=== PATIENT | female | born 1965 | race Caucasian/White ===

== ENCOUNTER 2018-10-20 07:23 | Day surgery (SDC) | payer OTHER ==
[2018-10-20] VITALS (10 sets, daily range): BP systolic 125–136; BP diastolic 79–95
[~2018-10-20] VITALS: Ht 157.5 cm; Wt 61.2 kg
[2018-10-20] MEDS ORDERED: HYDROCHLOROTH12.5 M2 ORAL (08:09)
[2018-10-20] MEDS ORDERED: LISINOPRIL20 MG ORAL (08:09)
[2018-10-20] MEDS ORDERED: Lidocaine 1% MPF 10mg/ml 5ml ONE (08:45)
[2018-10-20] MEDS ORDERED: Midazolam 2mg/2ml Inj ONE (08:45)
[2018-10-20] MEDS ORDERED: Propofol 200mg/20ml IV ONE (08:45)
[2018-10-20] MEDS ORDERED: LR 1000ml ONE (08:45)
--- NOTE | 2018-10-20 08:49 | Short Stay Surgery H&P ---
History of Present Illness History of Present Illness Chief Complaint abdominal pains/GERDS HPI Ofe Morillo is a 53 year old female who was admitted on for GERDS/abadominal pains. Patient History Allergies: Uncoded Allergies: STEROIDS (Allergy, Unknown, Shortness of Breath, 10/20/18) Medication History Scheduled Hydrochlorothiazide* (Hydrochlorothiazide*), 12.5 MG ORAL DAILY, (Reported) Lisinopril (Lisinopril*), 20 MG ORAL DAILY, (Reported) Review of Systems Cardiovascular: Reports: no symptoms, hypertension Skeletal: Reports: trauma Gastrointestinal: Reports: gastro esophageal reflux disease Genitourinary: Reports: no symptoms Neurologic: Reports: no symptoms Hematologic: Reports: no symptoms Physical Exam Vital Signs Last Vital Signs Date Time Temp Pulse Resp B/P (MAP) Pulse Ox O2 Delivery O2 Flow Rate FiO2 10/20/18 08:11 98.1 80 18 135/79 98 Room Air Skin: normal HENT: normal Heart: normal Lungs: normal Abdomen: abnormal Extremities: normal Genitourinary: normal Plan Plan of Care Upper GI endoscopy and biopsy Preop Interventions None Summary of Findings See the reports Attestation Are the patient's medical conditions optimized for surgery? Attestation Response: yes Zion Mcdonnell MD Oct 20, 2018 08:49
--- NOTE | 2018-10-20 08:50 | Pre-Procedure Note/Attestation ---
Pre-Procedure Note/Attestation Complete Prior to Procedure Planned Procedure: left Procedure Narrative: Examination of the upper GI tract via endoscopy with taking biopsy Indications for Procedure Pre-Operative Diagnosis: R/O Peptic Ulcer/gastritis Attestation I attest that I discussed the nature of the procedure; its benefits; risks and complications; and alternatives (and the risks and benefits of such alternatives ), prior to the procedure, with the patient (or the patient's legal advertising sales representative). I attest that, if there was a reasonable possibility of needing a blood transfusion, the patient (or the patient's legal advertising sales representative) was given the [facility] standardized written summary, pursuant to the Eben Junior Blood Safety Act ([place] Health and Safety Code # 1645, as amended). I attest that I re-evaluated the patient just prior to the surgery and that there has been no change in the patient's H&P, except as documented below: Zion Mcdonnell MD Oct 20, 2018 08:50
--- NOTE | 2018-10-20 08:56 | Anethesia Preoperative Eval ---
Anesthesia Pre-op PMH/ROS General Date of Evaluation: Oct 20, 2018 Time of Evaluation: 08:52 Anesthesiologist: Shabana ASA Score: ASA 1 Mallampati Score Class I : Soft palate, uvula, fauces, pillars visible Class II: Soft palate, uvula, fauces visible Class III: Soft palate, base of uvula visible Class IV: Only hard plate visible Mallampati Classification: Class I Surgeon: Kecia Diagnosis: GERD Surgical Procedure: EGD Anesthesia History: none Family History: no anesthesia problems Allergies: Uncoded Allergies: STEROIDS (Allergy, Unknown, Shortness of Breath, 10/20/18) Medications: see eMAR Patient NPO?: Yes NPO Date: Oct 20, 2018 NPO Time: 20:00 Past Medical History Cardiovascular: Reports: HTN Pulmonary: Denies: asthma, COPD, JUAN MANUEL, other Gastrointestinal/Genitourinary: Reports: GERD, other - hx of ovarian CA - sx Neurologic/Psychiatric: Reports: depression/anxiety Endocrine: Denies: DM, hypothyroidism, steroids, other HEENT: Denies: cataract (L), cataract (R), glaucoma, [place] (L), [place] (R), other Hematology/Immune: Denies: anemia, DVT, bleeding disorder, other Musculoskeletal/Integumentary: Reports: OA - on fingers mild PSxH Narrative: , TAHBSO 2010 Anesthesia Pre-op Phys. Exam Physician Exam Last Vital Signs Date Time Temp Pulse Resp B/P (MAP) Pulse Ox O2 Delivery O2 Flow Rate FiO2 10/20/18 08:11 98.1 80 18 135/79 98 Room Air Constitutional: NAD Neurologic: CN 2-12 intact Cardiovascular: RRR Respiratory: CTA Gastrointestinal: S/NT/ND Airway Exam Mallampati Score: Class I MO: full ROM: full Teeth: missing - left upper back Dentures: no upper, no lower Anesthesia Pre-op A/P Risk Assessment & Plan Assessment: A&Ox4 Plan: MAC Status Change Before Surgery: No Pre-Antibiotics Given Within 1 Hr of Incision: Meeta Plunkett CRNA Oct 20, 2018 08:56
--- NOTE | 2018-10-20 09:01 | Immediate Post-Op Evaluation ---
Immediate Post-Op Evalulation Immediate Post-Op Evalulation Procedure: EGD Date of Evaluation: Oct 20, 2018 Time of Evaluation: 09:11 IV Fluids: LR 400ml Blood Products: 0 Estimated Blood Loss: 0 Urinary Output: 0 Blood Pressure Systolic: 127 Blood Pressure Diastolic: 89 Pulse Rate: 84 Respiratory Rate: 18 O2 Sat by Pulse Oximetry: 99 Temperature (Fahrenheit): 97 Pain Score (1-10): 0 Nausea: No Vomiting: No Complications none Patient Status: awake, reacts, patent Hydration Status: adequate Given Within 1 Hr of Incision: No - none per surgeon Meeta Donald CRNA Oct 20, 2018 09:01
--- NOTE | 2018-10-20 09:01 | 48 Hour Post Anesthesia Eval ---
Post Anesthesia Evaluation Procedure: EGD Date of Evaluation: Oct 20, 2018 Time of Evaluation: 10:14 Blood Pressure Systolic: 133 0: 88 Pulse Rate: 69 Respiratory Rate: 22 Temperature (Fahrenheit): 97 O2 Sat by Pulse Oximetry: 97 Airway: patent Nausea: No Vomiting: No Pain Intensity: 0 Hydration Status: adequate Mental Status/LOC: patient returned to baseline Follow-up care needed: patient intructions given Meeta Donald CRNA Oct 20, 2018 09:01
--- NOTE | 2018-10-20 09:04 | Endoscopy Procedure Note ---
Endoscopy Procedure Note General Indication for Procedure: Abdominal pains/GERDs Procedures Performed: EGD - Mild gastritis , otherwise completely normal upper GI. endoscopy, biopsy was obtained from the gastric body. Specimen: yes Pt Tolerated Procedure Well: Yes Estimated Blood Loss: none Anesthesia Anesthesiologist: Ms. Meeta Donald CRNA Anesthesia: moderate sedation Medications Medication Given: see anesthesia record Inserted Devices Implant(s) used?: No Quality Quality of Bowel Preparation: Excellent Was there any complications?: No GI Core Measures 50 yrs or older w/o bx or poly: Not Applicable 10yrs. F/U not recommended: Not Applicable If not recommended, why?: Med reason:<3 yrs.: System Reason:<3 yrs.: Zion Mcdonnell MD Oct 20, 2018 09:04
--- NOTE | 2018-10-20 09:05 | Discharge Instructions ---
Discharge Instructions Discharge Instructions Follow up with: Make appointment to see the doctor after 2 weeks in the office For Congestive Heart Failure Reminder Report to your physician any weight gain of 5 pounds or more in one week. Zion Mcdonnell MD Oct 20, 2018 09:05
--- NOTE | 2018-10-20 17:00 | Pre-op HX & Phy Repo 2 SIG ---
DATE OF ADMISSION: 10/20/2018 HISTORY OF PRESENT ILLNESS: This examination was done for clearance of the patient before undergoing the procedure for upper GI endoscopy, which had been authorized by the insurer for compensation for this examination. The patient is a 53-year-old female who is being seen prior to undergoing the procedure of upper GI endoscopy for which she has been scheduled for evaluation of her GI symptoms that she has been complaining. Actually, the applicant had been seen by Dr. Dutch Estrella couple of years ago. We recommended for this applicant to undergo the procedures of upper and lower GI endoscopy for the symptoms that she presented herself. She reported to me at this time that she had received a colonoscopic examination approximately 6 months ago by primary caregiver, which has been reported to be normal. At this time, the applicant reports to me that she does have history of experiencing heartburn and pain over upper part of the abdomen, which was consistent with the diagnosis of gastroesophageal acid reflux and as such she was examined by Dr. Estrella in the past. However, she denies having any difficulty swallowing such as dysphagia, odynophagia, etc. There is no nausea or vomiting either. Her appetite seems to be quite normal. When I saw the applicant in the office approximately a month ago, I suggested for her to be started on the medications such as antacids and PPI such as omeprazole, which obviously she has not been taking it as she does not have much symptoms at this time at all. She denies any GI bleeding, diarrhea, constipation, etc. Basically, she reported that she has been under significant amount of pressure at the job that she was working for [employer] as she was in the job of sales and marketing. Obviously, this situation made her emotionally quite sick and stressful at the job site. She often has some sleeping problems as well along with significant anxiety. She also reported that she has had history of ovarian carcinoma diagnosed in 2009, which seems to be under good control at this time with proper treatments. She has also been diagnosed to have irritable bowel syndrome, IBS in the past when she was seen by other examiners. As I mentioned, currently she seems to be quite asymptomatic and does not complain of any abdominal pain or heartburn today when I examined her. PAST MEDICAL HISTORY: The patient has had history of hypertension for which she is taking adequate medications such as lisinopril and hydrochlorothiazide. PAST SURGICAL HISTORY: She has had C-sections and ovarian cancer surgery. There was also history of hysterectomy in 2010. ALLERGIES: Steroids. CHILDHOOD DISEASES: As usual. FAMILY HISTORY: Mother has had history of heart disease with congestive heart failure and father had the prostate cancer as well. HABITS: The applicant denies drinking alcohol or smoking cigarettes. REVIEW OF SYSTEMS: Basically history of present illness. She currently denies having any abdominal pain, nausea, or vomiting. As I mentioned, no chest pain, shortness of breath, etc. No urological symptoms such as dysuria, pyuria, hematuria, etc. PHYSICAL EXAMINATION: GENERAL: At this time reveals alert, well oriented, very pleasant female, does not seem to be in any acute distress. VITAL SIGNS: Reveals blood pressure 135/79, temperature 98.6, pulse rate 80 per minute, respiration 18 per minute, O2 saturation 98%. HEENT: Normocephalic. Pupils equal in size, reactive to light and accommodation. No visible jaundice. Buccal cavity, tongue midline, well hydrated. No ulcers. NECK: Supple. No JVD, thyromegaly, thyromegaly, adenopathy. CHEST: Clear to auscultation and percussion. No rales or rhonchi. HEART: S1 and S2 normal. Regular rhythm. No gallops or murmur. ABDOMEN: Soft and currently nontender. There is no organomegaly. No masses palpated. Bowel sounds are present. EXTREMITIES: Unremarkable. SKIN AND LYMPHATICS: Revealed evidence of tattoos over the hands, otherwise completely normal. NEUROLOGIC: Completely normal. INITIAL PREOPERATIVE IMPRESSION: 1. History of abdominal pain and heartburn, rule out the gastritis, esophagitis, peptic ulcer disease, etc. 2. History of anxiety and stress related to work environments. 3. Hypertension. RECOMMENDATIONS: The applicant at this time seems to be quite stable to undergo the procedure of upper GI endoscopy. She understands the risks and benefits and will sign the consent for the procedure and it has been authorized as well. Said Ignacia Mcdonnell DR: Aram JOB#: [id number] CC:
--- NOTE | 2018-10-20 17:45 | Operative Note - Dictated ---
DATE OF OPERATION: 10/20/2018 SURGEON: Zion Mcdonnell M.D. PROCEDURE: Esophagogastroduodenoscopy with biopsy. PREOPERATIVE DIAGNOSES: Abdominal pain, history of gastroesophageal reflux, and heartburn, rule out peptic ulcer disease. POSTOPERATIVE DIAGNOSIS: Evidence of mild gastritis, otherwise completely normal upper GI endoscopy. Biopsy was taken per random from gastric body. MEDICATION USED: Per Ms. Meeta Donald CRNA. INSTRUMENT: GIF Olympus upper GI video endoscope. DESCRIPTION OF PROCEDURE: The patient, after arriving in the endoscopy unit, was told about risks and benefits of the procedure, which she accepted and signed informed consent. She was then put on the left lateral decubitus position. After adequate IV sedation, the scope was gently passed through the cricopharyngeal area, was lodged into the upper esophagus and gradually advanced towards gastroesophageal junction. The entire length of the esophagus looked normal. No evidence of varices, inflammatory process, ulceration, etc. was found. GE junction also looked completely normal. No Linda's or hiatal hernia noted. At this time, the scope was advanced into the stomach, gastric cavity was distended. The areas of the fundus and the body and the antrum were examined in washing and screening plant supervisor fashion, which revealed evidence of minimal erythema consistent with mild gastritis, but they were not significant. One random biopsy from gastric body obtained as there were no any evidence of ulcers, tumors, or polyps, etc. Finally, the scope was gradually passed through the antrum and the pylorus, first and second portion of duodenum were also found to be completely normal. At this time, a retroflexion maneuver was applied in the stomach and there was no any other abnormality at the GE junction in a retrograde fashion. Finally, the scope was pulled out and the procedure was terminated. The patient tolerated the procedure well and left the endoscopy room in a good condition. Zion Mcdonnell M.D. DR: BINH JOB#: [id number] CC:
== END 2018-10-20 11:05 | disposition home or self-care (01) ==
LOC: GAS 07:23
DX: K29.50 Unspecified chronic gastritis without bleeding (principal); I10 Essential (primary) hypertension; F41.9 Anxiety disorder, unspecified; Z82.49 Family history of ischemic heart disease and other diseases of the circulatory system; Z88.8 Allergy status to other drugs, medicaments and biological substances; K21.9 Gastro-esophageal reflux disease without esophagitis; F32.9 Major depressive disorder, single episode, unspecified; Z85.43 Personal history of malignant neoplasm of ovary; M19.049 Primary osteoarthritis, unspecified hand
CPT/HCPCS: 43239; J2250; J2704; 94003; 94150